=== PATIENT | female | born 1995 | race Caucasian/White ===

== ENCOUNTER 2023-12-31 10:46 | Emergency (ER) | payer SELFPAY ==
[2023-12-31] MEDS ORDERED: ONDANSETRON 4 MG/2 ML VIAL ONE (11:14)
[2023-12-31] MEDS ORDERED: NA CHLORIDE 0.9% 1,000 ML ONE (11:14)
[2023-12-31 11:36] LABS: Absolute Lymphocytes (CBC) 1.3 K/uL (0.7-4.9); Absolute Monocytes 0.3 K/uL (0.1-1.3); Absolute Neutrophil 6.3 K/uL (1.8-8.0); Basophils % 0.5 % (0-1.3); Eosinophils % 0.3 % (0-4.4); Hematocrit 41.8 % (36.0-45.0); Hemoglobin 13.6 g/dL (12.0-15.0); Lymphocytes % 16.7 % (15.3-44.8); MCH 28.4 pg (27.0-35.0); MCHC 32.5 g/dL (32.0-36.0); MCV 87.5 fL (80-100); MPV 11.3 fL (7.6-11.3); Monocytes % 4.3 % (3.3-12.3); Neutrophils % 78.2 % (41.7-73.7); Platelets 218 thou/uL (152-406); RBC Red Blood Cell Count 4.77 M/uL (3.86-4.86); Red Cell Distribution Width 13.5 % (12.1-15.2)
[2023-12-31 11:53] LABS: Albumin 3.9 g/dL (3.4-5.0); Albumin/Globulin Ratio 0.9 (1.1-1.8); Anion Gap 9.7 mEq/L (5.0-15.0); Bilirubin Total 0.2 mg/dL (0.2-1.0); Globulin 4.5 g/dL (2.3-3.5); Potassium 3.7 mEq/L (3.5-5.1); Protein, Total 8.4 g/dL (6.4-8.2)
[2023-12-31 12:40] LABS: Specific Gravity 1.026 (1.005-1.030)
[2023-12-31 12:42] LABS: Specific Gravity 1.026 (1.005-1.030); Urine Bacteria None Seen /HPF (<20); Urine Bilirubin NEGATIVE (Negative); Urine Blood Negative (Negative); Urine Clarity Extremely Turbid (Clear); Urine Color Yellow (Yellow); Urine Culture Reflex Order NOT NEEDED; Urine Glucose NEGATIVE (Negative); Urine Ketones NEGATIVE (Negative); Urine Microscopic Reflex YN ORDER UMIC; Urine Mucus 4+ /HPF (None Seen); Urine Nitrite NEGATIVE (Negative); Urine Protein 1+ (Negative); Urine Urobilinogen Normal (Normal); Urine WBC <5 /HPF (<5)
[2023-12-31] MEDS ORDERED: CEFTRIAXONE 1000 MG/VIAL ONE (12:57)
[2023-12-31] MEDS ORDERED: CIPROFLOXACIN HCL 500 MG TAB ONE (13:08)
--- NOTE | 2023-12-31 13:32 | EDPHYS ---
Physician Documentation [facility] Name: Chato Catherine Age: 28 yrs Sex: Female : 1995 Arrival Date: 12/31/2023 Time: 10:46 Bed 19 Private MD: NILDA Physician Low Hussein HPI: 12/30 13:24 This 28 yrs old Female presents to ER via Ambulatory with complaints of anastasia Abdominal Pain, Urinary Problem. 13:24 The patient presents with abdominal pain in the epigastric area, in the right upper anastasia quadrant. Onset: The symptoms/episode began/occurred 4 day(s) ago. The patient presents with flank pain, on the right. Onset: The symptoms/episode began/occurred 4 day(s) ago. Modifying factors: The symptoms are alleviated by nothing, the symptoms are aggravated by nothing. Associated signs and symptoms: Pertinent positives: dysuria, urinary frequency. Severity of symptoms: At their worst the symptoms were mild, in the emergency department the symptoms are unchanged. The patient is sexually active, reportedly has a single partner. 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 - Social history:: Smoking status: Patient denies any tobacco usage or history of. - Family history:: not pertinent. ROS: 13:24 Constitutional: Negative for fever, chills, and weight loss, Eyes: Negative for injury, anastasia pain, redness, and discharge, ENT: Negative for injury, pain, and discharge, Neck: Negative for injury, pain, and swelling, Cardiovascular: Negative for chest pain, palpitations, and edema, Respiratory: Negative for shortness of breath, cough, wheezing, and pleuritic chest pain, Back: Negative for injury and pain, : Negative for injury, bleeding, discharge, and swelling, MS/Extremity: Negative for injury and deformity, Skin: Negative for injury, rash, and discoloration, Neuro: Negative for headache, weakness, numbness, tingling, and seizure, Psych: Negative for depression, anxiety, suicide ideation, homicidal ideation, and hallucinations, Allergy/Immunology: Negative for hives, rash, and allergies, Endocrine: Negative for neck swelling, polydipsia, polyuria, polyphagia, and marked weight changes, Hematologic/Lymphatic: Negative for swollen nodes, abnormal bleeding, and unusual bruising, 13:24 Abdomen/GI: Positive for abdominal pain, of the suprapubic area, posterior aspect of right lateral abdomen, anterior aspect of right lateral abdomen, right upper quadrant and right lower quadrant, Exam: 13:24 Constitutional: This is a well developed, well nourished patient who is awake, alert, anastasia and in no acute distress. Head/Face: Normocephalic, atraumatic. Eyes: Pupils equal round and reactive to light, extra-ocular motions intact. Lids and lashes normal. Conjunctiva and sclera are non-icteric and not injected. Cornea within normal limits. Periorbital areas with no swelling, redness, or edema. ENT: Nares patent. No nasal discharge, no septal abnormalities noted. Tympanic membranes are normal and external auditory canals are clear. Oropharynx with no redness, swelling, or masses, exudates, or evidence of obstruction, uvula midline. Mucous membranes moist. Neck: Trachea midline, no thyromegaly or masses palpated, and no cervical lymphadenopathy. Supple, full range of motion without nuchal rigidity, or vertebral point tenderness. No Meningismus. Chest/axilla: Normal chest wall appearance and motion. Nontender with no deformity. No lesions are appreciated. Cardiovascular: Regular rate and rhythm with a normal S1 and S2. No gallops, murmurs, or rubs. Normal PMI, no JVD. No pulse deficits. Respiratory: Lungs have equal breath sounds bilaterally, clear to auscultation and percussion. No rales, rhonchi or wheezes noted. No increased work of breathing, no retractions or nasal flaring. Abdomen/GI: Soft, non-tender, with normal bowel sounds. No distension or tympany. No guarding or rebound. No evidence of tenderness throughout. Back: No spinal tenderness. No costovertebral tenderness. Full range of motion. Skin: Warm, dry with normal turgor. Normal color with no rashes, no lesions, and no evidence of cellulitis. MS/ Extremity: Pulses equal, no cyanosis. Neurovascular intact. Full, normal range of motion. Neuro: Awake and alert, GCS 15, oriented to person, place, time, and situation. Cranial nerves II-XII grossly intact. Motor strength 5/5 in all extremities. Sensory grossly intact. Cerebellar exam normal. Normal gait. Psych: Awake, alert, with orientation to person, place and time. Behavior, mood, and affect are within normal limits. 13:24 : CVA tenderness, is absent, Sexual behavior: the patient is sexually active, and reports a single partner, Vital Signs: 10:58 BP 122 / 88; Pulse 71; Resp 15; Temp 97.3; Pulse Ox 100% ; ko1 12:38 BP 127 / 90; Pulse 75; Resp 18; Pulse Ox 99% on R/A; rs5 13:34 BP 120 / 82; Pulse 73; Resp 18; Pulse Ox 99% on R/A; rs5 MDM: 11:05 Patient medically screened. [facility] 13:29 Differential diagnosis: kidney stone, menorrhea, nonspecific abdominal pain, urinary anastasia tract infection, appendicitis, bowel obstruction, gastritis, Irritable bowel syndrome, non-specific abd pain. Data reviewed: vital signs, nurses notes, lab test result(s), radiologic studies, CT scan. Data reviewed: radiologic studies, CT scan. Consideration of Admission/Observation Escalation of care including admission/observation considered. I considered the following discharge prescriptions or medication management in the emergency department Medications were administered in the Emergency Department. See MAR. Test considered but Not performed: Ultrasound NO ABD USG. 12/30 11:02 Order name: CBC with Diff; Complete Time: 12:19 [facility] 12/30 11:02 Order name: CMP; Complete Time: 12:19 [facility] 12/30 11:02 Order name: Lipase; Complete Time: 12:19 [facility] 12/30 11:02 Order name: Test, Urine; Complete Time: 12:52 [facility] 12/30 11:02 Order name: Urinalysis w/ reflexes; Complete Time: 12:52 [facility] 12/30 13:22 Order name: CT Stone Protocol [facility] 12/30 11:02 Order name: IV Saline Lock; Complete Time: 11:39 [facility] 12/30 11:02 Order name: Labs collected and sent; Complete Time: 11:39 [facility] Administered Medications: 11:15 Drug: NS 0.9% IV 1000 ml IV at 1 bolus Per protocol; 1000 mL bolus Route: IV; Rate: 1 rs5 bolus; Site: left antecubital; 11:30 Follow up: Response: No adverse reaction rs5 11:50 Follow up: IV Status: Completed infusion rs5 11:15 Drug: Ondansetron IVP 4 mg IVP once; over 2 minutes Route: IVP; Site: left antecubital; rs5 11:30 Follow up: Response: No adverse reaction; Nausea is decreased rs5 13:02 Drug: Rocephin IV 1 grams IV at per protocol once; Given slow IV push per pharmacy rs5 instructions Route: IV; Rate: per protocol; Site: left antecubital; 13:20 Follow up: Response: No adverse reaction rs5 13:10 Drug: Ciprofloxacin PO 500 mg PO once Route: PO; kd3 13:30 Follow up: Response: No adverse reaction rs5 13:22 Drug: Phenazopyridine PO 200 mg PO once Route: PO; rs5 13:54 Follow up: Response: No adverse reaction rs5 Disposition Summary: 12/31/23 13:31 Discharge Ordered Notes: Location: Home anastasia Problem: new anastasia Symptoms: have improved anastasia Condition: Stable anastasia Diagnosis - Dysuria anastasia - UTI/ Urinary tract infection, site not specified anastasia - Abdominal pain, unspecified anastasia Followup: anastasia - With: Private Physician - When: 2 - 3 days - Reason: Recheck today's complaints, Continuance of care, Re-evaluation by your physician Discharge Instructions: - Discharge Summary Sheet anastasia - Abdominal Pain, Adult anastasia - Dysuria anastasia - Urinary Tract Infection, Adult anastasia - Urinary Tract Infection, Adult, [id number] Forms: - Medication Reconciliation Form [facility] - Thank You Letter [facility] - Antibiotic Education [facility] - Prescription Opioid Use anastasia - Patient Portal Instructions [facility] - Leadership Thank You Letter [facility] Prescriptions: - ondansetron 4 mg Oral Tablet,disintegrating - take 1 tablet ORAL route every 6-8 hours as needed for nausea and vomiting; 20 anastasia tablet; Refills: 0, Product Selection Permitted - Cipro 250 mg Oral tablet - take 1 tablet ORAL route every 12 hours; 14 tablet; Refills: 0, Product anastasia Selection Permitted - Bactrim DS 800-160 mg Oral Tablet - take 1 tablet ORAL route every 12 hours for 3 days; 6 tablet; Refills: 0, [facility] Product Selection Permitted - dicyclomine 20 mg Oral tablet - take 1 tablet ORAL route 4 times per day; 28 tablet; Refills: 0, Product anastasia Selection Permitted Signatures: Dispatcher [employer] Low Spears MD MD cha Doucette, Kyli RN RN kd3 Nena Valente RN RN ko1 Benny Low RN RN rs5 Corrections: (The following items were deleted from the chart) 11:02 11:01 Allergies: No Known Allergies; ko1 ko1
--- NOTE | 2023-12-31 13:32 | ER ---
Nurse's Notes [facility] Name: Chato Catherine Age: 28 yrs Sex: Female : 1995 Arrival Date: 12/31/2023 Time: 10:46 Bed 19 Private MD: Diagnosis: Dysuria;UTI/ Urinary tract infection, site not specified;Abdominal pain, unspecified Presentation: 12/30 10:58 Chief complaint: Patient states: had a UTI for 3-4 weeks no primary care, self ko1 diagnosed, now right side and abdomen. Coronavirus screen: At this time, the client does not indicate any symptoms associated with coronavirus-19. Ebola Screen: No symptoms or risks identified at this time. Initial Sepsis Screen: Does the patient meet any 2 criteria? No. Patient's initial sepsis screen is negative. Does the patient have a suspected source of infection? No. Patient's initial sepsis screen is negative. Risk Assessment: Do you want to hurt yourself or someone else? Patient reports no desire to harm self or others. Onset of symptoms is unknown. 10:58 Method Of Arrival: Ambulatory ko1 10:58 Acuity: BLANCA 4 ko1 Triage Assessment: 11:01 General: Appears in no apparent distress. Behavior is calm, cooperative, appropriate ko1 for age. Pain: Complains of pain in abdomen. GI: Reports diarrhea, nausea. 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 - Social history:: Smoking status: Patient denies any tobacco usage or history of. - Family history:: not pertinent. Screenin:11 [facility] ED Fall Risk Assessment (Adult) History of falling in the last 3 months, kd3 including since admission No falls in past 3 months (0 pts) Confusion or Disorientation No (0 pts) Intoxicated or Sedated No (0 pts) Impaired Gait No (0 pts) Mobility Assist Device Used No (0 pt) Altered Elimination No (0 pt) Score/Fall Risk Level 0 - 2 = Low Risk Oriented to surroundings. Abuse screen: Denies threats or abuse. Denies injuries from another. Nutritional screening: No deficits noted. Tuberculosis screening: No symptoms or risk factors identified. Assessment: 11:05 General: Appears in no apparent distress. comfortable, Behavior is calm, cooperative. rs5 Pain: Complains of pain in right lower quadrant Pain currently is 3 out of 10 on a pain scale. Quality of pain is described as aching, Is continuous. 11:05 Neuro: Level of Consciousness is awake, alert, obeys commands, Oriented to person, rs5 place, time, situation. Cardiovascular: Patient's skin is warm and dry. Rhythm is regular. Respiratory: Airway is patent Respiratory effort is even, unlabored, Respiratory pattern is regular, symmetrical. GI: Abdomen is round non-distended, Abd is soft and non tender X 4 quads. Reports nausea. : Reports burning with urination. EENT: No signs and/or symptoms were reported regarding the EENT system. Derm: Skin is intact, Skin is pink, warm \T\ dry. Musculoskeletal: Range of motion: intact in all extremities. 12:07 Reassessment: Patient and/or family updated on plan of care and expected duration. Pain rs5 level reassessed. Patient is alert, oriented x 3, equal unlabored respirations, skin warm/dry/pink. Patient states feeling better. Patient states symptoms have improved. 13:10 General: Appears in no apparent distress. Behavior is calm, cooperative. Neuro: Level kd3 of Consciousness is awake, alert, obeys commands, Oriented to person, place, time, situation. Respiratory: Airway is patent Trachea midline Respiratory effort is even, unlabored, Respiratory pattern is regular, symmetrical. 13:11 GI: Bowel sounds present X 4 quads. Abd is soft X 4 quads. kd3 Vital Signs: 10:58 BP 122 / 88; Pulse 71; Resp 15; Temp 97.3; Pulse Ox 100% ; ko1 12:38 BP 127 / 90; Pulse 75; Resp 18; Pulse Ox 99% on R/A; rs5 13:34 BP 120 / 82; Pulse 73; Resp 18; Pulse Ox 99% on R/A; rs5 ED Course: 10:49 Patient arrived in ED. rg4 11:01 Triage completed. ko1 11:01 Low Hussein MD is Attending Physician. anastasia 11:01 Arm band placed on left wrist. Patient placed in an exam room, on a stretcher, on pulse ko1 oximetry, Patient notified of wait time. 11:09 Benny Low, HEAVEN is Primary Nurse. rs5 12:30 No provider procedures requiring assistance completed. rs5 13:12 Patient has correct armband on for positive identification. Provided Education on: kd3 antibiotic . 13:35 CT Stone Protocol In Process Unspecified. EDPR 13:55 IV discontinued, intact, bleeding controlled, No redness/swelling at site. Pressure rs5 dressing applied. Administered Medications: 11:15 Drug: NS 0.9% IV 1000 ml IV at 1 bolus Per protocol; 1000 mL bolus Route: IV; Rate: 1 rs5 bolus; Site: left antecubital; 11:30 Follow up: Response: No adverse reaction rs5 11:50 Follow up: IV Status: Completed infusion rs5 11:15 Drug: Ondansetron IVP 4 mg IVP once; over 2 minutes Route: IVP; Site: left antecubital; rs5 11:30 Follow up: Response: No adverse reaction; Nausea is decreased rs5 13:02 Drug: Rocephin IV 1 grams IV at per protocol once; Given slow IV push per pharmacy rs5 instructions Route: IV; Rate: per protocol; Site: left antecubital; 13:20 Follow up: Response: No adverse reaction rs5 13:10 Drug: Ciprofloxacin PO 500 mg PO once Route: PO; kd3 13:30 Follow up: Response: No adverse reaction rs5 13:22 Drug: Phenazopyridine PO 200 mg PO once Route: PO; rs5 13:54 Follow up: Response: No adverse reaction rs5 Medication: 13:12 VIS not applicable for this client. kd3 Outcome: 13:31 Discharge ordered by . [facility] 13:55 Discharged to home ambulatory, rs5 13:55 Condition: stable 13:55 Discharge instructions given to patient, family, Instructed on discharge instructions, follow up and referral plans. medication usage, Demonstrated understanding of instructions, follow-up care, medications, Prescriptions given X 2, 13:59 Patient left the ED. rs5 Signatures: Dispatcher [employer] EDPR Low Hussein MD MD cha Garcia, Rubi rg4 Susana Murdock RN RN kd3 Nena Valente, RN RN ko1 Benny Low RN RN rs5 Corrections: (The following items were deleted from the chart) 11:02 11:01 Allergies: No Known Allergies; ko1 ko1 17:56 17:56 Response: No adverse reaction; Nausea is decreased rs5 rs5
[2023-12-31] MEDS ORDERED: PHENAZOPYRIDINE 100MG TAB PO ONE (13:52)
--- NOTE | 2023-12-31 14:15 | RAD REPORT ---
EXAM DESCRIPTION: CT - Stone Protocol - 12/31/2023 1:35 pm CLINICAL HISTORY: ABD PAIN COMPARISON: No comparisons TECHNIQUE: Thin cut axial CT imaging of the abdomen and pelvis was performed without IV contrast. Mu ltiplanar reformats were generated and reviewed. All CT scans are performed using dose optimization technique as appropriate and may include automated exposure control or mA/KV adjustment according to patient size. FINDINGS: No suspicious findings in the lung bases. The liver, spleen, adrenal glands, and pancreas show no suspicious findings. Gallbladder and biliary tree are also without suspicious finding. Lobulated contour of the left kidney, may relate to parenchymal scarring or underlying cysts. No susp icious parenchymal findings within limits of noncontrast technique. No evidence of radiopaque calculi or hydroureteronephrosis. No dilated bowel loops or bowel wall thickening. Asymmetric prominence of the left ovary, measuring u p to 3.8 cm, may contain a dominant cyst or follicle cysts. No free air, free fluid or inflammatory s tranding. No suspicious mass or bulky lymphadenopathy. Umbilical hernia containing fat measuring 1.5 cm in transverse diameter at the neck. The urinary bladder is without significant finding. No suspicious bony findings. IMPRESSION: No acute intra-abdominal process. Incidental findings as above.
[2023-12-31 14:22] VITALS: BP 122/88; TEMP 97.3; O2SAT 100
== END 2023-12-31 13:59 | disposition home or self-care (01) ==
LOC: ER 10:46
DX: N39.0 Urinary tract infection, site not specified (principal); R10.13 Epigastric pain
CPT/HCPCS: 36415; 74176; 76377; 80053; 81001; 81025; 83690; 85025; 96361; 96374; 96375; 99284; J0696; J2405; J7030

== ENCOUNTER 2024-02-01 10:15 | Emergency (ER) | payer SELFPAY ==
[2024-02-01 11:05] LABS: Hematocrit 40.9 % (36.0-45.0); Hemoglobin 13.2 g/dL (12.0-15.0); MCV 87.5 fL (80-100); RBC Red Blood Cell Count 4.68 M/uL (3.86-4.86)
[2024-02-01 11:06] LABS: Absolute Monocytes 0.3 K/uL (0.1-1.3); Absolute Neutrophil 6.6 K/uL (1.8-8.0); Basophils % 0.4 % (0-1.3); Eosinophils % 0.2 % (0-4.4); Lymphocytes % 12.9 % (15.3-44.8); MCH 28.2 pg (27.0-35.0); MCHC 32.3 g/dL (32.0-36.0); MPV 11.2 fL (7.6-11.3); Monocytes % 3.2 % (3.3-12.3); Neutrophils % 83.3 % (41.7-73.7); Platelets 233 thou/uL (152-406); Red Cell Distribution Width 14.3 % (12.1-15.2)
[2024-02-01 11:12] LABS: Urine Bacteria <20 /HPF (<20); Urine Bilirubin NEGATIVE (Negative); Urine Blood Negative (Negative); Urine Clarity Extremely Turbid (Clear); Urine Color Light-Yellow (Yellow); Urine Culture Reflex Order REFLEXED; Urine Glucose NEGATIVE (Negative); Urine Ketones NEGATIVE (Negative); Urine Microscopic Reflex YN ORDER UMIC; Urine Mucus Slight /HPF (None Seen); Urine Nitrite NEGATIVE (Negative); Urine Protein TRACE (Negative); Urine RBC <5 /HPF (None Seen); Urine Urobilinogen Normal (Normal); Urine pH 7.5 (5.0-7.0)
[2024-02-01 11:21] LABS: Albumin 3.8 g/dL (3.4-5.0); Albumin/Globulin Ratio 0.8 (1.1-1.8); Bilirubin Total 0.2 mg/dL (0.2-1.0); Globulin 4.5 g/dL (2.3-3.5); Protein, Total 8.3 g/dL (6.4-8.2)
--- NOTE | 2024-02-01 11:21 | RAD REPORT ---
EXAM DESCRIPTION: CTAbdomen Pelvis W Contrast - 02/01/2024 11:14 am CLINICAL HISTORY: Abdominal pain. ABD PAIN COMPARISON: Stone Protocol dated 12/31/2023 TECHNIQUE: Biphasic CT imaging of the abdomen and pelvis was performed with 100 ml non-ionic IV cont rast. All CT scans are performed using dose optimization technique as appropriate and may include automated exposure control or mA/KV adjustment according to patient size. FINDINGS: The lung bases are clear. The liver, spleen, pancreas, adrenal glands and kidneys are within normal limits. No bowel obstruction, free air, free fluid or abscess. There is significant stool retention throughou t the colon. The appendix is normal. Moderate fat containing umbilical hernia No evidence of signific ant lymphadenopathy. No suspicious bony findings. IMPRESSION: No acute intra-abdominal or pelvic finding. Moderate fat containing umbilical hernia.
--- NOTE | 2024-02-01 11:27 | ER ---
Nurse's Notes [facility] Name: Chato Catherine Age: 28 yrs Sex: Female : 1995 Arrival Date: 02/01/2024 Time: 10:15 Bed 2 Private MD: Diagnosis: Abdominal pain, Generalized;Slow transit constipation Presentation: 01/31 10:23 Chief complaint: Patient states: pain in right side X 1 week and feeling nauseous and iw dizzy , today I've been vomiting , pain is intermittent, denies urine symptoms, had been constipated X 1 week but has had normal BM today. Coronavirus screen: At this time, the client does not indicate any symptoms associated with coronavirus-19. Ebola Screen: Patient negative for fever greater than or equal to 101.5 degrees Fahrenheit, and additional compatible Ebola Virus Disease symptoms Patient denies exposure to infectious person. Patient denies travel to an Ebola-affected area in the 21 days before illness onset. No symptoms or risks identified at this time. Initial Sepsis Screen: Does the patient meet any 2 criteria? No. Patient's initial sepsis screen is negative. Does the patient have a suspected source of infection? No. Patient's initial sepsis screen is negative. Risk Assessment: Do you want to hurt yourself or someone else? Patient reports no desire to harm self or others. Onset of symptoms was January 25, 2024. 10:23 Method Of Arrival: Ambulatory iw 10:23 Acuity: BLANCA 3 iw Triage Assessment: 10:24 General: Appears in no apparent distress. Behavior is calm, cooperative. Pain: iw Complains of pain in back and abdomen. 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 - Infectious Disease History:: Denies. - Social history:: Smoking status: Patient denies any tobacco usage or history of. Screenin:58 [facility] ED Fall Risk Assessment (Adult) History of falling in the last 3 months, ph including since admission No falls in past 3 months (0 pts) Confusion or Disorientation No (0 pts) Intoxicated or Sedated No (0 pts) Impaired Gait No (0 pts) Mobility Assist Device Used No (0 pt) Altered Elimination No (0 pt) Score/Fall Risk Level 0 - 2 = Low Risk Oriented to surroundings, Maintained a safe environment, Hourly rounding (assess needs \T\ fall precautionary measures) done. Abuse screen: Denies threats or abuse. Denies injuries from another. 11:00 Nutritional screening: No deficits noted. Tuberculosis screening: No symptoms or risk ph factors identified. Assessment: 11:00 General: Appears in no apparent distress. comfortable, Behavior is calm, cooperative. ph Pain: Complains of pain in anterior aspect of right lateral abdomen Pain radiates to right lower quadrant. Neuro: Level of Consciousness is awake, alert, obeys commands, Oriented to person, place, time, situation. Cardiovascular: Capillary refill < 3 seconds in bilateral fingers. Respiratory: Airway is patent Respiratory effort is even, unlabored. GI: Abdomen is non-distended, Reports lower abdominal pain, nausea, vomiting. : Reports pain in right flank(s), lower quadrant(s). Musculoskeletal: Circulation, motion, and sensation intact. Range of motion: intact in all extremities. Vital Signs: 10:23 BP 130 / 95; Pulse 97; Resp 16; Temp 98.4; Pulse Ox 99% on R/A; Weight 93.89 kg; Height iw 5 ft. 5 in. ; Pain 0/10; 11:57 BP 124 / 78; Pulse 87; Resp 18; Temp 98; Pulse Ox 99% on R/A; ph 10:23 Body Mass Index 34.45 (93.89 kg, 165.1 cm) iw 10:23 Pain Scale: Adult iw ED Course: 10:19 Patient arrived in ED. mr 10:19 Alena Sellers PA-C is PHCP. sb4 10:19 Low Hussein MD is Attending Physician. sb4 10:24 Triage completed. iw 10:25 Arm band placed on. iw 10:58 Susana Quispe, RN is Primary Nurse. ph 10:59 Patient has correct armband on for positive identification. Placed in gown. Bed in low ph position. Call light in reach. Side rails up X 1. Provided Education on: Estimated time for test results and use of call light. Pulse ox on. NIBP on. Door closed. Noise minimized. Warm blanket given. 11:01 Initial lab(s) drawn, by me, sent to lab. Urine collected: clean catch specimen, ph cloudy. Inserted saline lock: 22 gauge in left antecubital area, using aseptic technique. Blood collected. 11: CBC with Diff Sent. ph 11:01 CMP Sent. ph 11:01 Lipase Sent. ph 11:01 Test, Urine Sent. ph 11:01 Urinalysis w/ reflexes Sent. ph 11:15 CT Abd/Pelvis - IV Contrast Only In Process Unspecified. EDMS Administered Medications: No medications were administered Medication: 10:58 VIS not applicable for this client. ph Outcome: 11:26 Discharge ordered by sb4 11:57 Patient left the ED. iw Signatures: Dispatcher [employer] EDMS Fidelina Anguiano, Reg Reg mr Joan Combs, RN RN iw Susana Quispe RN RN ph Sims, Lauren, RN RN Alena Taveras, PA-Hoa PAWili sb4
--- NOTE | 2024-02-01 11:27 | EDPHYS ---
Physician Documentation [facility] Name: Chato Catherine Age: 28 yrs Sex: Female : 1995 Arrival Date: 02/01/2024 Time: 10:15 Bed 2 Private MD: NILDA Physician Low Hussein HPI: 01/31 10:30 This 28 yrs old Female presents to ER via Ambulatory with complaints of Abdominal Pain. sb4 10:31 The patient presents with abdominal pain right middle/lateral. Onset: The sb4 symptoms/episode began/occurred 3 day(s) ago. The symptoms do not radiate. Associated signs and symptoms: Pertinent positives: constipation. The symptoms are described as sharp. Modifying factors: The symptoms are alleviated by nothing, the symptoms are aggravated by nothing. The patient has not experienced similar symptoms in the past. The patient has not recently seen a physician. 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 - Infectious Disease History:: Denies. - Social history:: Smoking status: Patient denies any tobacco usage or history of. ROS: 10:31 Constitutional: Negative for fever, chills, and weight loss, sb4 10:31 Abdomen/GI: Positive for abdominal pain, constipation, 10:31 All other systems are negative, Exam: 10:31 Constitutional: This is a well developed, well nourished patient who is awake, alert, sb4 and in no acute distress. Head/Face: Normocephalic, atraumatic. Eyes: Extra-ocular motions intact. Periorbital areas with no swelling, redness, or edema. ENT: Mucous membranes moist. Cardiovascular: Regular rate and rhythm with a normal S1 and S2. Respiratory: Lungs have equal breath sounds bilaterally, clear to auscultation and percussion. No rales, rhonchi or wheezes noted. No increased work of breathing, no retractions or nasal flaring. Skin: Warm, dry with normal turgor. Normal color with no rashes, no lesions, and no evidence of cellulitis. MS/ Extremity: Pulses equal, no cyanosis. Neurovascular intact. Full, normal range of motion. 10:31 Abdomen/GI: Inspection: abdomen appears normal, obese Bowel sounds: normal, Palpation: soft, mild abdominal tenderness, in the anterior aspect of right lateral abdomen, rebound tenderness, is not appreciated, voluntary guarding, is not appreciated, Vital Signs: 10:23 BP 130 / 95; Pulse 97; Resp 16; Temp 98.4; Pulse Ox 99% on R/A; Weight 93.89 kg; Height iw 5 ft. 5 in. ; Pain 0/10; 11:57 BP 124 / 78; Pulse 87; Resp 18; Temp 98; Pulse Ox 99% on R/A; ph 10:23 Body Mass Index 34.45 (93.89 kg, 165.1 cm) iw 10:23 Pain Scale: Adult iw MDM: 10:26 Patient medically screened. sb4 11:25 Data reviewed: vital signs, nurses notes, lab test result(s), radiologic studies, and sb4 as a result, I will discharge patient. Counseling: I had a detailed discussion with the patient and/or guardian regarding the historical points, exam findings, and any diagnostic results supporting the discharge/admit diagnosis, lab results, radiology results, to return to the emergency department if symptoms worsen or persist or if there are any questions or concerns that arise at home. 01/31 10:30 Order name: CBC with Diff; Complete Time: 11:06 sb4 01/31 10:30 Order name: CMP; Complete Time: 11:21 sb4 01/31 10:30 Order name: Lipase; Complete Time: 11:21 sb4 01/31 10:30 Order name: Test, Urine; Complete Time: 11:09 sb4 01/31 10:30 Order name: Urinalysis w/ reflexes; Complete Time: 11:14 sb4 01/31 11:15 Order name: Urine Culture EDOH 01/31 10:30 Order name: CT Abd/Pelvis - IV Contrast Only; Complete Time: 11:23 sb4 01/31 10:30 Order name: IV Saline Lock; Complete Time: 11:01 sb4 01/31 10:30 Order name: Labs collected and sent; Complete Time: 11:01 sb4 Administered Medications: No medications were administered Disposition Summary: 02/01/24 11:26 Discharge Ordered Notes: Location: Home sb4 Problem: new sb4 Symptoms: are unchanged sb4 Condition: Stable sb4 Diagnosis - Abdominal pain, Generalized sb4 - Slow transit constipation sb4 Followup: sb4 - With: Emergency Department - When: As needed - Reason: Trouble breathing, Worsening of condition Discharge Instructions: - Discharge Summary Sheet sb4 - Constipation, Adult, Izgm-ji-Eyls sb4 - Abdominal Pain, Adult, Fasr-km-Jufc sb4 Forms: - Work release form ph - Patient Portal Instructions sb4 - Leadership Thank You Letter sb4 Prescriptions: - Miralax 17 gram Oral powder in packet - take 1 packet ORAL route daily; 30 packet; Refills: 0, Product Selection sb4 Permitted Addendum: 02/02/2024 22:07 Co-signature as Attending Physician, Low Hussein MD I agree with the assessment and c grover plan of care. Signatures: Dispatcher [employer] Low Spears MD MD cha Williams, Irene RN HEAVEN iw Evette Kaplan RN RN ld1 Alena Sellers PA-C PA-C sb4 Corrections: (The following items were deleted from the chart) 01/31 10:30 10:30 CBC+H.LAB.BRZ ordered. EDMS EDMS 10:30 10:30 COMPREHENSIVE METABOLIC PANEL+C.LAB.BRZ ordered. EDMS EDMS 10:30 10:30 LIPASE+C.LAB.BRZ ordered. EDMS EDMS 10:30 10:30 Test, Urine+UC.LAB.BRZ ordered. EDMS EDMS 10:30 10:30 Urinalysis+U.LAB.BRZ ordered. EDMS EDMS 10:30 10:30 Abdomen Pelvis W Con+CT.RAD.BRZ ordered. EDMS EDMS
[2024-02-01 12:19] VITALS: BP 124/78; TEMP 98; O2SAT 99
== END 2024-02-01 11:57 | disposition home or self-care (01) ==
LOC: ER 10:15
DX: K59.00 Constipation, unspecified (principal)
CPT/HCPCS: 36415; 74177; 80053; 81001; 81025; 83690; 85025; 87077; 87086; 87088; 87186; 99283; Q9967

== ENCOUNTER 2024-05-22 21:12 | Emergency (ER) | payer SELFPAY ==
--- NOTE | 2024-05-22 22:35 | RAD REPORT ---
EXAM DESCRIPTION: US - Transvaginal OB - 05/22/2024 10:19 pm CLINICAL HISTORY: ABD CRAMPING, COMPARISON: No comparisons FINDINGS: Uterus measures 8.6 x 4.1 x 6.1 cm with volume of 113 cc. Endometrial echo complex measure s 15 millimeters. No gestational sac identified. The right ovary measures 2.5 x 1.6 x 1.4 cm with volume of 3 cc. The left ovary measures 3.7 x 1.9 x 1.9 cm with volume of 6.8 cc. Probable corpus luteum in the left ovary. Bilateral ovarian blood flow. Moderate free fluid in the cul sac . IMPRESSION: No IUP identified. Therefore, cannot exclude early normal first trimester , ear ly ectopic, or failed first trimester . Suggest correlating with beta HCG and consider short -term follow-up ultrasound. Moderate free fluid in the cul-de-sac . Bilateral ovarian blood flow.
[2024-05-22 23:38] LABS: Absolute Basophils 0.1 K/uL (0-0.5); Absolute Eosinophils 0.1 K/uL (0-0.5); Absolute Lymphocytes (CBC) 2.1 K/uL (0.7-4.9); Absolute Monocytes 0.5 K/uL (0.1-1.3); Absolute Neutrophil 6.2 K/uL (1.8-8.0); Basophils % 0.7 % (0-1.3); Eosinophils % 1.1 % (0-4.4); Hematocrit 38.2 % (36.0-45.0); Hemoglobin 12.4 g/dL (12.0-15.0); Lymphocytes % 23.7 % (15.3-44.8); MCH 28.1 pg (27.0-35.0); MCHC 32.4 g/dL (32.0-36.0); MCV 86.8 fL (80-100); MPV 10.9 fL (7.6-11.3); Monocytes % 5.4 % (3.3-12.3); Neutrophils % 69.1 % (41.7-73.7); Platelets 187 thou/uL (152-406); Red Cell Distribution Width 13.8 % (12.1-15.2)
[2024-05-22 23:40] LABS: Sqamous Epithelial 20-50 /HPF (None Seen); Urine Bacteria 20-50 /HPF (<20); Urine Bilirubin NEGATIVE (Negative); Urine Blood Trace (Negative); Urine Clarity Extremely Turbid (Clear); Urine Color Yellow (Yellow); Urine Culture Reflex Order NOT NEEDED; Urine Glucose NEGATIVE (Negative); Urine Ketones NEGATIVE (Negative); Urine Microscopic Reflex YN ORDER UMIC; Urine Mucus 4+ /HPF (None Seen); Urine Nitrite NEGATIVE (Negative); Urine Protein 1+ (Negative); Urine Urobilinogen 1+ (Normal); Urine WBC >50 /HPF (<5); Urine WBC Clump Rare /HPF (None Seen); Urine pH 5.5 (5.0-7.0)
[2024-05-22 23:53] LABS: Anion Gap 9.5 mEq/L (5.0-15.0); Potassium 3.5 mEq/L (3.5-5.1)
--- NOTE | 2024-05-23 00:25 | ER ---
Nurse's Notes [facility] Name: Chato Catherine Age: 29 yrs Sex: Female : 1995 Arrival Date: 05/22/2024 Time: 21:12 Bed 16 Private MD: Diagnosis: Threatened ;UTI/ Urinary tract infection, site not specified Presentation: 05/22 22:04 Chief complaint: Patient states: Having some lower abdominal cramping today. No vaginal cm10 bleeding. Pt states that last month she had some spotting and a positive test. Coronavirus screen: Client denies travel out of the [place] in the last 14 days. At this time, the client does not indicate any symptoms associated with coronavirus-19. Ebola Screen: Patient denies travel to an Ebola-affected area in the 21 days before illness onset. No symptoms or risks identified at this time. Initial Sepsis Screen: Does the patient meet any 2 criteria? No. Patient's initial sepsis screen is negative. Does the patient have a suspected source of infection? No. Patient's initial sepsis screen is negative. Risk Assessment: Do you want to hurt yourself or someone else? Patient reports no desire to harm self or others. Onset of symptoms was May 22, 2024. 22:04 Method Of Arrival: Ambulatory cm10 22:04 Acuity: BLANCA 3 cm10 Triage Assessment: 22:06 General: Appears in no apparent distress. comfortable, Behavior is calm, cooperative. cm10 Pain: Denies pain. Neuro: No deficits noted. Level of Consciousness is awake, alert, obeys commands, Oriented to person, place, time, situation, Appropriate for age. 05/23 01:00 : Reports vaginal bleeding that is spotty, since March \\ april. 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 - Infectious Disease History:: Denies. - Social history:: Smoking status: Patient denies any tobacco usage or history of. Screenin:30 [facility] ED Fall Risk Assessment (Adult) History of falling in the last 3 months, rg5 including since admission No falls in past 3 months (0 pts) Confusion or Disorientation No (0 pts) Intoxicated or Sedated No (0 pts) Impaired Gait No (0 pts) Mobility Assist Device Used No (0 pt) Altered Elimination No (0 pt) Score/Fall Risk Level 0 - 2 = Low Risk Oriented to surroundings, Maintained a safe environment, Educated pt \T\ family on fall prevention, incl call for assistance when getting out of bed, Hourly rounding (assess needs \T\ fall precautionary measures) done. Abuse screen: Denies threats or abuse. Nutritional screening: No deficits noted. Tuberculosis screening: No symptoms or risk factors identified. Assessment: 22:30 General: Appears comfortable, Behavior is calm, cooperative, appropriate for age. rg5 22:30 Pain: Denies pain. Neuro: Level of Consciousness is awake, alert, obeys commands, rg5 Oriented to person, place, time. Cardiovascular: Denies chest pain, Capillary refill < 3 seconds Patient's skin is warm and dry. Respiratory: Airway is patent Trachea midline Respiratory effort is even, unlabored, Respiratory pattern is regular, symmetrical. GI: Abdomen is round. : No signs and/or symptoms were reported regarding the genitourinary system. EENT: No deficits noted. Derm: Skin is intact, Skin is dry, Skin is normal, Skin temperature is warm. Musculoskeletal: Range of motion: intact in all extremities. Vital Signs: 22:04 BP 128 / 88; Pulse 77; Resp 16; Temp 96.5(TE); Pulse Ox 100% on R/A; Weight 90.72 kg; cm10 Height 5 ft. 5 in. ; Pain 0/10; 23:15 BP 124 / 70; Pulse 70; Resp 17; Temp 98.7; Pulse Ox 99% on R/A; Pain 0/10; rg5 05/23 00:45 BP 124 / 86; Pulse 78; Resp 18; Temp 98.6; Pulse Ox 100% on R/A; Pain 0/10; rg5 05/22 22:04 Body Mass Index 33.28 (90.72 kg, 165.1 cm) cm10 05/22 22:04 Pain Scale: Adult cm10 23:15 Pain Scale: Adult rg5 05/23 00:45 Pain Scale: Adult rg5 ED Course: 05/22 21:14 Patient arrived in ED. im 21:15 Low Loving PA is PHCP. cp 21:15 Brent Kwan MD is Attending Physician. cp 22:06 Triage completed. cm10 22:06 Arm band placed on Patient placed in waiting room. cm10 22:21 US Transvaginal Ob In Process Unspecified. EDMS 22:30 Patient has correct armband on for positive identification. Bed in low position. Call rg5 light in reach. Side rails up X 1. 22:30 No provider procedures requiring assistance completed. Inserted saline lock: 20 gauge rg5 in right antecubital area, using aseptic technique. Blood collected. Flushed with 10 mL NS. 22:47 Hector Salomon, RN is Primary Nurse. rg5 05/23 00:59 IV discontinued, bleeding controlled, No redness/swelling at site. Pressure dressing rg5 applied. 01:00 Provided Education on: ff-up with [facility]. rg5 Administered Medications: No medications were administered Medication: 05/22 22:30 VIS not applicable for this client. rg5 Outcome: 05/23 00:25 Discharge ordered by . cp 00:59 Discharged to home ambulatory, rg5 00:59 Condition: stable 00:59 Discharge instructions given to patient, family, 01:01 Patient left the ED. rg5 Signatures: Dispatcher [employer] EDLA Low Loving PA PA cp Mendoza, Itzel im Martinez, Clarissa, RN RN 10 Hector Salomon, RN RN rg5
--- NOTE | 2024-05-23 00:25 | EDPHYS ---
Physician Documentation [facility] Name: Chato Catherine Age: 29 yrs Sex: Female : 1995 Arrival Date: 05/22/2024 Time: 21:12 Bed 16 Private MD: ED Physician Brent Kwan HPI: 05/22 22:10 This 29 yrs old Female presents to ER via Ambulatory with complaints of test, cp Vaginal Bleeding. 22:10 The patient presents with abdominal pain in the lower abdomen. Onset: The cp symptoms/episode began/occurred today. The symptoms do not radiate. Associated signs and symptoms: Pertinent negatives: constipation, diarrhea, dysuria, fever, vomiting. The symptoms are described as crampy. Severity of pain: in the emergency department the pain is unchanged. Patient reports having 2 "faintly positive" test recently. LMP 03/17/2024. Patient is . No active vaginal bleeding. 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 - Infectious Disease History:: Denies. - Social history:: Smoking status: Patient denies any tobacco usage or history of. ROS: 22:15 Abdomen/GI: Positive for abdominal cramps, cp 22:15 Eyes: Negative for injury, pain, redness, and discharge, cp 22:15 Constitutional: Negative for body aches, chills, fever, poor PO intake, 22:15 Cardiovascular: Negative for chest pain, 22:15 Respiratory: Negative for cough, shortness of breath, wheezing, 22:15 Back: Negative for pain at rest, pain with movement, 22:15 : Negative for urinary symptoms, active vaginal bleeding, 22:15 Neuro: Negative for altered mental status, headache, weakness, 22:15 All other systems are negative, Exam: 22:20 Constitutional: The patient appears in no acute distress, alert, awake, non-toxic, well cp developed, well nourished, 22:20 Head/Face: Normocephalic, atraumatic. cp 22:20 Eyes: Periorbital structures: appear normal, Conjunctiva: normal, no exudate, no injection, Sclera: no appreciated abnormality, Lids and lashes: appear normal, bilaterally, 22:20 ENT: External ear(s): are unremarkable, Nose: is normal, Mouth: Lips: moist, Oral mucosa: moist, Posterior pharynx: Airway: no evidence of obstruction, patent, 22:20 Chest/axilla: Inspection: normal, 22:20 Cardiovascular: Rate: normal, Rhythm: regular, 22:20 Respiratory: the patient does not display signs of respiratory distress, Respirations: normal, no use of accessory muscles, no retractions, labored breathing, is not present, Breath sounds: are clear throughout, no decreased breath sounds, no stridor, no wheezing, 22:20 Abdomen/GI: Inspection: abdomen appears normal, Bowel sounds: active, all quadrants, Palpation: soft, in all quadrants, mild abdominal tenderness, in the right lower quadrant and left lower quadrant, rebound tenderness, is not appreciated, involuntary guarding, is not appreciated, 22:20 Back: pain, is absent, ROM is normal, Vital Signs: 22:04 BP 128 / 88; Pulse 77; Resp 16; Temp 96.5(TE); Pulse Ox 100% on R/A; Weight 90.72 kg; cm10 Height 5 ft. 5 in. ; Pain 0/10; 23:15 BP 124 / 70; Pulse 70; Resp 17; Temp 98.7; Pulse Ox 99% on R/A; Pain 0/10; rg5 05/23 00:45 BP 124 / 86; Pulse 78; Resp 18; Temp 98.6; Pulse Ox 100% on R/A; Pain 0/10; rg5 05/22 22:04 Body Mass Index 33.28 (90.72 kg, 165.1 cm) cm10 18 22:04 Pain Scale: Adult cm10 23:15 Pain Scale: Adult rg5 05/23 00:45 Pain Scale: Adult rg5 MDM: 05/22 22:09 Patient medically screened. cp 22:45 Differential diagnosis: appendicitis, Ectopic , non-specific abd pain, Pelvic cp Inflammatory Disease, Pyelonephritis, Ureterolithiasis, urinary tract infection. 05/23 00:25 Data reviewed: vital signs, nurses notes, lab test result(s), radiologic studies, cp ultrasound, and as a result, I will discharge patient. 21:43 Counseling: I had a detailed discussion with the patient and/or guardian regarding the cp historical points, exam findings, and any diagnostic results supporting the discharge/admit diagnosis, the need for outpatient follow up, an OB/Gyne specialist, to return to the emergency department if symptoms worsen or persist or if there are any questions or concerns that arise at home. ED course: Discussed results of today's labs and US negative for IUP. Will discharge to home for continued monitoring and recommend repeat beta-hcg test in 48 hrs. 05/22 22:04 Order name: Abo/rh Typing; Complete Time: 00:20 05/22 22:04 Order name: Basic Metabolic Panel; Complete Time: 00:08 05/23 00:08 Interpretation: Normal except: CL 108. 05/22 22:04 Order name: CBC with Diff; Complete Time: 00:08 05/22 22:04 Order name: Test, Urine; Complete Time: 23:37 05/22 23:37 Interpretation: Reviewed. 05/22 22:04 Order name: Quantitative Hcg; Complete Time: 00:08 05/23 00:08 Interpretation: HCGQ 201; Reviewed. 05/22 22:04 Order name: Urinalysis w/ reflexes; Complete Time: 00:08 05/23 00:08 Interpretation: Normal except: [facility] Extremely Turbid; UBLD Trace; UPROT 1+; UUROB 1+; cp UESTR 500; UWBC >50; URBC 5-10; UBACT 20-50; SQEPI 20-50; MUCUS 4+. 05/22 22:09 Order name: US Transvaginal Ob; Complete Time: 22:38 05/22 22:38 Interpretation: Report reviewed. 05/22 22:04 Order name: IV Saline Lock; Complete Time: 23:49 05/22 22:04 Order name: Labs collected and sent; Complete Time: 23:49 05/22 22:04 Order name: NPO; Complete Time: 23:49 cp Administered Medications: No medications were administered Disposition Summary: 05/23/24 00:25 Discharge Ordered Notes: Location: Home cp Problem: new cp Symptoms: are unchanged cp Condition: Stable cp Diagnosis - Threatened cp - UTI/ Urinary tract infection, site not specified cp Followup: cp - With: Private Physician - When: 48 Hours - Reason: Repeat Beta-HCG (48 Hours) Discharge Instructions: - Discharge Summary Sheet cp - Abdominal Pain During cp - Threatened Miscarriage cp - First Trimester of cp Forms: - Medication Reconciliation Form cp - Antibiotic Education cp - Prescription Opioid Use cp - Patient Portal Instructions cp - Leadership Thank You Letter cp Prescriptions: - Macrobid 100 mg Oral Capsule - take 1 capsule ORAL route every 12 hours for 7 days; 14 capsule; Refills: 0, cp Product Selection Permitted Addendum: 05/24/2024 06:58 Co-signature as Attending Physician, Brent Kwan MD I reviewed the patient's care r n provided by the Advanced Practice Provider and agree with the diagnosis and treatment plan. Signatures: Dispatcher [employer] EDBrent Mora MD MD rn Page, Corey, PA PA cp Martinez, Clarissa, RN RN cm10 Corrections: (The following items were deleted from the chart) 05/23 21:37 21:36 Abdomen/GI: Positive for abdominal cramps, cp cp
[2024-05-23 01:24] VITALS: BP 124/86; TEMP 98.6; O2SAT 100
== END 2024-05-23 01:01 | disposition home or self-care (01) ==
LOC: ER 21:12
DX: O20.0 Threatened abortion (principal); O23.40 Unspecified infection of urinary tract in pregnancy, unspecified trimester; N39.0 Urinary tract infection, site not specified; Z3A.00 Weeks of gestation of pregnancy not specified
CPT/HCPCS: 36415; 76817; 80048; 81001; 81025; 84702; 85025; 86900; 86901

== ENCOUNTER 2024-06-03 20:23 | Emergency (ER) | payer OTHER, SELFPAY ==
--- NOTE | 2024-06-03 22:09 | RAD REPORT ---
EXAM DESCRIPTION: US - OB Limited - 06/03/2024 10:01 pm CLINICAL HISTORY: 6 weeks EGA and bleeding Pain and bleeding COMPARISON: No comparisonsTransvaginal OB dated 05/22/2024 FINDINGS: A single gestational sac is seen within the uterus. The shape of the sac is within normal limits for gestational age. Within the sac is a yolk sac measuring 2 mm. No embryo is detected at thi s time. The maternal adnexa and ovaries are within normal limits. Normal Doppler blood flow was demonstrated to both ovaries. 23 x 12 mm subchorionic bleed. IMPRESSION: Findings compatible with IUP are seen. Small yolk sac is present. Recommend follow-up so nography 10-12 days. 23 mm subchorionic bleed is present.
--- NOTE | 2024-06-04 01:27 | ER ---
Nurse's Notes [facility] Name: Chato Catherine Age: 29 yrs Sex: Female : 1995 Arrival Date: 06/03/2024 Time: 20:23 Bed 5 Private MD: Diagnosis: Threatened miscarriage, first trimester , vaginal bleeding in Presentation: 06/03 21:23 Chief complaint: Patient states: past two days slight bleeding/spotting. Coronavirus tm6 screen: Vaccine status: Patient reports being unvaccinated. Ebola Screen: Patient negative for fever greater than or equal to 101.5 degrees Fahrenheit, and additional compatible Ebola Virus Disease symptoms Patient denies exposure to infectious person. Patient denies travel to an Ebola-affected area in the 21 days before illness onset. No symptoms or risks identified at this time. Initial Sepsis Screen: Does the patient meet any 2 criteria? No. Patient's initial sepsis screen is negative. Does the patient have a suspected source of infection? No. Patient's initial sepsis screen is negative. Risk Assessment: Do you want to hurt yourself or someone else? Patient reports no desire to harm self or others. Onset of symptoms was June 02, 2024. 21:23 Method Of Arrival: Ambulatory tm6 21:23 Acuity: BLANCA 3 tm6 Triage Assessment: 21:25 General: Appears in no apparent distress. Behavior is calm, cooperative. Pain: Denies tm6 pain. EENT: No signs and/or symptoms were reported regarding the EENT system. Neuro: Level of Consciousness is awake, alert, obeys commands, Oriented to person, place, time, situation. Cardiovascular: Patient's skin is warm and dry. Respiratory: Airway is patent Respiratory effort is even, unlabored, Respiratory pattern is regular, symmetrical. GI: No signs and/or symptoms were reported involving the gastrointestinal system. Abdomen is round non-distended. : Reports vaginal bleeding that is bright red, spotty, since yesterday patient denies cramping. Derm: No signs and/or symptoms reported regarding the dermatologic system. Musculoskeletal: No signs and/or symptoms reported regarding the musculoskeletal system. 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 - Infectious Disease History:: Denies. - Social history:: Smoking status: Patient denies any tobacco usage or history of. Patient/guardian denies using alcohol. - Family history:: not pertinent. Screenin/31 01:02 [facility] ED Fall Risk Assessment (Adult). Abuse screen: Denies threats or abuse. Denies kd3 injuries from another. 01:39 [facility] ED Fall Risk Assessment (Adult) History of falling in the last 3 months, kd3 including since admission No falls in past 3 months (0 pts) Confusion or Disorientation No (0 pts) Intoxicated or Sedated No (0 pts) Impaired Gait No (0 pts) Mobility Assist Device Used No (0 pt) Altered Elimination No (0 pt) Score/Fall Risk Level 0 - 2 = Low Risk Oriented to surroundings. Nutritional screening: No deficits noted. Tuberculosis screening: No symptoms or risk factors identified. Vital Signs: 06/03 21:23 BP 128 / 90; Pulse 65; Resp 19; Temp 96.3(TE); Pulse Ox 100% on R/A; Weight 88 kg; tm6 Height 5 ft. 5 in. ; Pain 0/10; 23:22 BP 115 / 82; Pulse 71; Resp 19; Pulse Ox 100% on R/A; af3 06/04 01:02 BP 111 / 67; Pulse 79; Resp 19; Pulse Ox 100% on R/A; kd3 06/03 21:23 Body Mass Index 32.28 (88.00 kg, 165.1 cm) tm6 06/03 21:23 Pain Scale: Adult tm6 Isis Coma Score: 06:38 Eye Response: spontaneous(4). Motor Response: obeys commands(6). Verbal Response: sp4 oriented(5). Total: 15. ED Course: 06/03 20:42 Patient arrived in ED. gm2 20:47 James Dale MD is Attending Physician. sp4 21:24 Triage completed. tm6 21:25 Arm band placed on right wrist. tm6 22:02 US OB Limited In Process Unspecified. EDMS 06/04 00:17 Susana Murdock, RN is Primary Nurse. kd3 01:39 Provided Education on: bleeding in . kd3 01:39 No provider procedures requiring assistance completed. IV discontinued, intact, kd3 bleeding controlled, No redness/swelling at site. Pressure dressing applied. 01:40 Patient has correct armband on for positive identification. kd3 Administered Medications: No medications were administered Medication: 01:39 VIS not applicable for this client. kd3 Outcome: 01:27 Discharge ordered by . sarah 01:39 Discharged to home ambulatory, with family, kd3 01:39 Condition: stable 01:39 Discharge instructions given to patient, family, Instructed on discharge instructions, follow up and referral plans. Demonstrated understanding of instructions, follow-up care, 01:40 Patient left the ED. kd3 Signatures: Dispatcher [employer] [facility] Susana Murdock, RN RN kd3 James Dale MD MD sp4 Deidra Brown Tawney, RN RN 6 Laura Ontiveros 3
--- NOTE | 2024-06-04 01:28 | EDPHYS ---
Physician Documentation [facility] Name: Chato Catherine Age: 29 yrs Sex: Female : 1995 Arrival Date: 06/03/2024 Time: 20:23 Bed 5 Private MD: ED Physician James Dale HPI: 06/03 20:47 This 29 yrs old Female presents to ER via Unassigned with complaints of sp4 Vaginal Bleeding, pt is 6 weeks preg and bleeding. 23:03 Patient is -0-0-3 EGA 10 weeks 3 days by LMP 03/22/2024, states she has developed sp4 vaginal bleeding starting yesterday mild without clots. Without cramping. . [employer]: 21:23 LMP 03/05/2024, Verified, EDC 12/10/2024, Gestational age from LMP: 13 weeks 0 tm6 days Historical: - Allergies: 21:24 Amoxicillin; tm6 21:24 PENICILLINS; tm6 - PMHx: 21:24 None; tm6 - PSHx: 21:24 None; tm6 - Immunization history:: Client reports having NOT received the Covid vaccine. - Infectious Disease History:: Denies. - Social history:: Smoking status: Patient denies any tobacco usage or history of. Patient/guardian denies using alcohol. - Family history:: not pertinent. ROS: 06/04 06:38 Constitutional: Negative for fever, chills, and weight loss, vaginal bleeding that is sp4 painless All other systems are negative, Exam: 06:38 Constitutional: This is a well developed, well nourished patient who is awake, alert, sp4 and in no acute distress. Head/Face: Normocephalic, atraumatic. Eyes: Pupils equal round and reactive to light, extra-ocular motions intact. Lids and lashes normal. Conjunctiva and sclera are not injected. Cornea within normal limits. Periorbital areas with no swelling, redness, or edema. ENT: Nares patent. No nasal discharge, no septal abnormalities noted. Tympanic membranes are normal and external auditory canals are clear. Oropharynx with no redness, swelling, or masses, exudates, or evidence of obstruction, uvula midline. Mucous membranes moist. Neck: Trachea midline, no thyromegaly or masses palpated, and no cervical lymphadenopathy. Supple, full range of motion without nuchal rigidity, or vertebral point tenderness. Chest/axilla: Normal chest wall appearance and motion. Nontender with no deformity. No lesions are appreciated. Cardiovascular: Regular rate and rhythm with a normal S1 and S2. No gallops, murmurs, or rubs. Normal PMI, no JVD. No pulse deficits. Respiratory: Lungs have equal breath sounds bilaterally, clear to auscultation and percussion. No rales, rhonchi or wheezes noted. No increased work of breathing, no retractions or nasal flaring. Abdomen/GI: Soft, with normal bowel sounds. No distension or tympany. No guarding or rebound. No evidence of tenderness throughout. Back: No spinal tenderness. No costovertebral tenderness. Skin: Warm, dry with normal turgor. Normal color with no rashes, no lesions, and no evidence of cellulitis. MS/ Extremity: Pulses equal, no cyanosis. Neurovascular intact. Full, normal range of motion. Neuro: Awake and alert, GCS 15, oriented to person, place, time, and situation. Cranial nerves II-XII grossly intact. Motor strength 5/5 in all extremities. Sensory grossly intact. Psych: Awake, alert, with orientation to person, place and time. Behavior, mood, and affect are within normal limits Vital Signs: 06/03 21:23 BP 128 / 90; Pulse 65; Resp 19; Temp 96.3(TE); Pulse Ox 100% on R/A; Weight 88 kg; tm6 Height 5 ft. 5 in. ; Pain 0/10; 23:22 BP 115 / 82; Pulse 71; Resp 19; Pulse Ox 100% on R/A; af3 06/04 01:02 BP 111 / 67; Pulse 79; Resp 19; Pulse Ox 100% on R/A; kd3 06/03 21:23 Body Mass Index 32.28 (88.00 kg, 165.1 cm) tm6 06/03 21:23 Pain Scale: Adult tm6 Isis Coma Score: 06:38 Eye Response: spontaneous(4). Motor Response: obeys commands(6). Verbal Response: sp4 oriented(5). Total: 15. MDM: 06/03 20:48 Patient medically screened. sp4 06/04 06:38 Differential diagnosis: rolando infection, menorrhea, Data reviewed: vital signs, sp4 nurses notes, lab test result(s), radiologic studies, ultrasound. ED course: EXAM DESCRIPTION: US - OB Limited - 06/03/2024 10:01 pm CLINICAL HISTORY: 6 weeks EGA and bleeding Pain and bleeding COMPARISON: No comparisonsTransvaginal OB dated 05/22/2024 FINDINGS: A single gestational sac is seen within the uterus. The shape of the sac is within normal limits for gestational age. Within the sac is a yolk sac measuring 2 mm. No embryo is detected at this time. The maternal adnexa and ovaries are within normal limits. Normal Doppler blood flow was demonstrated to both ovaries. 23 x 12 mm subchorionic bleed. IMPRESSION: Findings compatible with IUP are seen. Small yolk sac is present. Recommend follow-up sonography 10-12 days. 23 mm subchorionic bleed is present. . 06:42 Consideration of Admission/Observation Escalation of care including sp4 admission/observation considered. ED course: hCG level today 14,000 patient stable for discharge. Vies to follow-up with [employer] for repeat sonogram in 10 days. 06/03 20:47 Order name: HCG-Quantitative; Complete Time: 01:25 sp4 06/03 20:48 Order name: US OB Limited; Complete Time: 22:56 sp4 06/04 00:12 Order name: Misc. Order: draw hcg; Complete Time: 01:00 vc1 Administered Medications: No medications were administered Disposition Summary: 06/04/24 01:27 Discharge Ordered Notes: We recommend repeat ultrasound in 7 to 10 days Location: Home sp4 Problem: new sp4 Symptoms: have improved sp4 Condition: Stable sp4 Diagnosis - Threatened miscarriage, first trimester , vaginal bleeding in sp4 Followup: sp4 - With: Private Physician - When: 7 - 10 days - Reason: Recheck today's complaints Discharge Instructions: - Discharge Summary Sheet sp4 - Threatened Miscarriage, [id number] sp4 Forms: - Patient Portal Instructions sp4 Signatures: Dispatcher [employer] Liliya Cooper RN RN vc1 James Dale MD MD sp4 Jenise Lomeli RN RN tm6 Corrections: (The following items were deleted from the chart) 06/03 20:48 20:48 OB Limited+[email or web address] ordered. EDMS EDMS
[2024-06-04 02:10] VITALS: TEMP 96.3; O2SAT 100
[2024-06-04 02:13] VITALS: BP 111/67
== END 2024-06-04 01:40 | disposition home or self-care (01) ==
LOC: ER 20:23
DX: O20.0 Threatened abortion (principal); Z3A.13 13 weeks gestation of pregnancy; Z28.310 Unvaccinated for COVID-19
CPT/HCPCS: 36415; 76815; 84702; 99283